=== PATIENT | female | born 1935 | race Caucasian/White ===

== ENCOUNTER 2018-12-10 19:31 | Inpatient (IN) ==
[2018-12-10] MEDS ORDERED: Ipratropium/Albuterol Neb 3 ML IH ONE ×2 (20:06→20:09)
--- NOTE | 2018-12-10 20:22 | Emergency Department Note ---
Disposition Clinical Impression: Community acquired pneumonia Disposition: Admitted As Inpatient Condition: Fair Instructions: Community-acquired Pneumonia (ED) Referrals: NONE,PCP [Primary Care Provider] - Forms: ED Satisfaction Letter Time of Disposition: 21:06 SOB HPI - General Chief Complaint: ED Shortness of Breath/Dyspnea Stated Complaint: sob Time Seen by Provider: 12/10/18 19:55 Source: EMS Limitations: physical limitation Nursing Notes Reviewed: Yes Vital Signs Reviewed: Yes - History of Present Illness For the last 3 days or so Miss Curran is been progressively more more short of breath. She is on home oxygen at 2 L and has a diagnosis of COPD unfortunately she continues to smoke cigarettes. She has had a more productive cough. No chest pain no heart history. She does have a history of a collapsed lung and was transferred to [facility] in [place] a few years ago for that. She is not sure who called the squad but they gave her breathing treatment and she is feeling somewhat better since then. He still accompanies her tells me that she is been more confused the last couple of days not taking medications. She is also had some diarrhea for the last 3 days or so as well. Appetite and down although she has not been nauseated or vomiting. She lives at home alone and tells me that she feels very dizzy and weak on ambulation and that she falls frequently or at least feels as though she is going to. - Related Data Home Medications Medication Instructions Recorded Confirmed Albuterol Sulfate [Ventolin Hfa] 18 gm IH Q4-6H PRN 12/10/18 12/10/18 Aspirin [Adult Aspirin] 81 mg PO DAILY 12/10/18 12/10/18 Budesonide/Formoterol 160/4.5 2 puff IH BIDR 12/10/18 12/10/18 [Symbicort 160/4.5] Buspirone HCl [Buspar] 10 mg PO HS 12/10/18 12/10/18 Meclizine HCl [Verticalm] 25 mg PO DAILY PRN 12/10/18 12/10/18 Paroxetine [Paxil] 30 mg PO DAILY 12/10/18 12/10/18 Ropinirole HCl [Requip] 0.5 mg PO HS 12/10/18 12/10/18 traZODone [TraZODone] 50 mg PO HS 12/10/18 12/10/18 Allergies Allergy/AdvReac Type Severity Reaction Status Date / Time Penicillins Allergy Rash Verified 12/10/18 19:39 Constitutional: Denies: fever, chills Eyes: Denies: vision change ENT ED: Denies: congestion Cardiovascular: Reports: dyspnea on exertion. Denies: chest pain Respiratory: Reports: cough, dyspnea, sputum production Gastrointestinal: Reports: diarrhea (has been accompanied by some incontinence as well). Denies: abdominal pain, nausea, vomiting Musculoskeletal: Denies: myalgia Neurological: Reports: confusion. Denies: headache Psychiatric: Reports: as per HPI (Confusion). Denies: auditory hallucinations, visual hallucinations Endocrine: Reports: fatigue Hematological/Lymphatic: Denies: easy bleeding, easy bruising Past Medical History - Past Medical History Medical history: Reports: cancer, COPD Psychiatric history: Reports: no psych history HORSE RIDER history: Reports: no HORSE RIDER history - Social History Smoking Status: Current some day smoker Smokeless Tobacco Status: No Alcohol use: Reports: none Drug use: Reports: none Physical Exam - General Limitations: physical limitation General appearance: alert - Head Head exam: atraumatic, normocephalic - Eye Eye exam: Present: normal appearance - ENT ENT exam: mucous membranes moist - Respiratory Respiratory exam: Present: respiratory distress (Accessory muscle use although she is able to speak in full sentences. 2 L nasal cannula 95%), accessory muscle use, other (Diffuse inspiratory expiratory rhonchi with fair air exch sourav). Absent: wheezes, stridor - Cardiovascular Cardiovascular exam: Present: regular rate, normal rhythm, normal heart sounds - Abdominal Exam Abdominal exam: Present: soft, Non-Tender - Extremities Exam Extremities exam: Present: normal inspection. Absent: pedal edema, calf ten derness (No calf cord erythema or edema) - Neurological Exam Neurological exam: Present: alert. Absent: oriented X3 (States name name but tells me that the year is "19 ". Niece tells me that this is not normal for her.) - Psychiatric Psychiatric exam: Present: normal affect, normal mood - Skin Skin exam: Present: warm, dry Course Vital Signs Temperature 97.6 F 12/10/18 19:31 Pulse Rate 87 12/10/18 19:31 Respiratory Rate 28 12/10/18 19:31 Blood Pressure 115/58 12/10/18 19:31 O2 Sat by Pulse Oximetry 94 12/10/18 19:31 Temperature 97.6 F 12/10/18 19:31 Pulse Rate 78 12/10/18 20:42 Respiratory Rate 28 12/10/18 20:42 Blood Pressure 114/79 12/10/18 20:42 O2 Sat by Pulse Oximetry 97 12/10/18 20:42 Oxygen Delivery Oxygen Delivery Nasal Cannula Shortness of Breath/Dyspnea - MDM Narrative Medical decision making narrative: Pneumonia. She has not been in the hospital for the last 3 months so we will treat this as community-acquired. Levaquin 750 mg IV 1 was ordered here in the emergency department. She lives alone and is confused. Although her niece does accompany her to the emergency department she is unable to stay with her aunt and no other family members can either. Therefore I do not believe Ms. Curran is safe for discharge. I spoke with the covering hospitalist here Charly and presented the case. She accepted admission. She is in stable condition as she is transferred to the floor. Pneumonia seems to have triggered a COPD exacerbation as well therefore we will continue nebs and Solu-Medrol. Own a tree media. This is drop from 136 last March. This could be contributing to her confusion. We will hydrate her 0.9 normal saline at 125 an hour after the Levaquin is dosed. Hypokalemia. She is not vomiting so we will give this orally. This could be secondary to the diarrhea that she is reported the last 3 days or so. - Medical Records Medical records reviewed: Yes I reviewed the patient's medical records. - Lab Data Lab results reviewed: Yes I reviewed the patient's lab results. Result diagrams: 12/10/18 20:17 12/10/18 20:17 Lab Results 12/10/18 12/10/18 12/10/18 Range/Units 20:17 20:17 20:17 WBC (4.3-11.1) K/mcL RBC (3.82-4.97) M/mcL Hgb (11.5-15.4) g/dL Hct (35.3-44.9) % MCV (83.0-100.0) fL MCH (28.0-33.3) pg MCHC (31.6-35.5) g/dL RDW (11.5-14.5) % Plt Count (140-400) K/mcL MPV (9.4-12.4) fL Immature Gran % (0-4) % Seg Neutrophils % % Lymphocytes % % Monocytes % % Eosinophils % % Basophils % % Neutrophils # (1.6-8.9) K/mcL Lymphocytes # (0.6-4.6) K/mcL Monocytes # (0.0-1.3) K/mcL Eosinophils # (0.0-0.6) K/mcL Basophils # (0.0-0.2) K/mcL PT (9.4-12.1) Seconds INR APTT (26.0-36.0) Seconds D-Dimer 679 H (0-500) ng/mLFEU Sodium 129 L (136-145) mEq/L Potassium 3.1 L (3.5-5.1) mEq/L Chloride 96 L (98-107) mEq/L Carbon Dioxide 23 (23-29) mEq/L BUN 21 (8-23) mg/dL Creatinine 0.75 (0.60-1.20) mg/dL Est GFR ( Amer) > 60 (> 60) Est GFR (Non-Af Amer) > 60 (> 60) BUN/Creatinine Ratio 28 H (6-26) Glucose 174 H (70-105) mg/dL Calculated Osmolality 275 L (280-300) Calcium 9.1 (8.6-10.3) mg/dL Magnesium 1.9 (1.6-2.6) mg/dL Total Bilirubin 0.6 (0.3-1.0) mg/dL AST 23 (13-39) Units/L ALT 10 (7-52) Units/L Alkaline Phosphatase 52 (34-104) Units/L Troponin I < 0.03 (< 0.04) ng/mL B-Natriuretic Peptide 50 (Less than 100) pg/mL Serum Total Protein 6.8 (6.4-8.9) g/dL Albumin 3.9 (3.5-5.7) g/dL Globulin 2.9 (2.4-3.5) g/dL Albumin/Globulin Ratio 1.3 (1.1-2.2) 12/10/18 12/10/18 Range/Units 20:17 20:17 WBC 11.7 H (4.3-11.1) K/mcL RBC 3.80 L (3.82-4.97) M/mcL Hgb 12.2 (11.5-15.4) g/dL Hct 36.4 (35.3-44.9) % MCV 95.8 (83.0-100.0) fL MCH 32.1 (28.0-33.3) pg MCHC 33.5 (31.6-35.5) g/dL RDW 12.9 (11.5-14.5) % Plt Count 199 (140-400) K/mcL MPV 10.2 (9.4-12.4) fL Immature Gran % 0.5 (0-4) % Seg Neutrophils % 88.1 % Lymphocytes % 5.5 % Monocytes % 5.6 % Eosinophils % 0.0 % Basophils % 0.3 % Neutrophils # 10.3 H (1.6-8.9) K/mcL Lymphocytes # 0.6 (0.6-4.6) K/mcL Monocytes # 0.7 (0.0-1.3) K/mcL Eosinophils # 0.0 (0.0-0.6) K/mcL Basophils # 0.0 (0.0-0.2) K/mcL PT 14.5 H (9.4-12.1) Seconds INR 1.3 APTT 32.2 (26.0-36.0) Seconds D-Dimer (0-500) ng/mLFEU Sodium (136-145) mEq/L Potassium (3.5-5.1) mEq/L Chloride (98-107) mEq/L Carbon Dioxide (23-29) mEq/L BUN (8-23) mg/dL Creatinine (0.60-1.20) mg/dL Est GFR ( Amer) (> 60) Est GFR (Non-Af Amer) (> 60) BUN/Creatinine Ratio (6-26) Glucose (70-105) mg/dL Calculated Osmolality (280-300) Calcium (8.6-10.3) mg/dL Magnesium (1.6-2.6) mg/dL Total Bilirubin (0.3-1.0) mg/dL AST (13-39) Units/L ALT (7-52) Units/L Alkaline Phosphatase (34-104) Units/L Troponin I (< 0.04) ng/mL B-Natriuretic Peptide (Less than 100) pg/mL Serum Total Protein (6.4-8.9) g/dL Albumin (3.5-5.7) g/dL Globulin (2.4-3.5) g/dL Albumin/Globulin Ratio (1.1-2.2) - Radiology Data Radiology results reviewed: Yes I reviewed the patient's radiology results. - EKG Data EKG attestation: Yes I reviewed and interpreted this EKG. EKG results narrative: EKG as interpreted by me normal sinus rhythm 80 bpm T-wave flattening in aVL no ST elevations or depressions normal axis no evidence of hypertrophy there are Q waves in V2. No significant change from March 2018.
[2018-12-10 20:28] LABS: Basophils % 0.3 %; Hematocrit 36.4 % (35.3-44.9); Hemoglobin 12.2 g/dL (11.5-15.4); Immature Granulocytes % 0.5 % (0-4); Lymphocytes # 0.6 K/mcL (0.6-4.6); Lymphocytes % 5.5 %; Mean Corpuscular HGB Conc 33.5 g/dL (31.6-35.5); Mean Corpuscular Hemoglobin 32.1 pg (28.0-33.3); Mean Corpuscular Volume 95.8 fL (83.0-100.0); Mean Platelet Volume 10.2 fL (9.4-12.4); Monocytes # 0.7 K/mcL (0.0-1.3); Monocytes % 5.6 %; Neutrophils # 10.3 K/mcL (1.6-8.9); Platelet Count 199 K/mcL (140-400); Red Cell Distribution Width 12.9 % (11.5-14.5); Segmented Neutrophils % 88.1 %
[2018-12-10 20:34] LABS: INR 1.3; Prothrombin Time 14.5 Seconds (9.4-12.1)
[2018-12-10 20:37] LABS: Activated Partial Thrombo Time 32.2 Seconds (26.0-36.0)
[2018-12-10 20:44] LABS: Alanine Aminotransferase 10 Units/L (7-52); Albumin 3.9 g/dL (3.5-5.7); Albumin/Globulin Ratio 1.3 (1.1-2.2); Alkaline Phosphatase 52 Units/L (34-104); Aspartate Amino Transferase 23 Units/L (13-39); BUN/Creatinine Ratio 28 (6-26); Bilirubin,Total 0.6 mg/dL (0.3-1.0); Blood Urea Nitrogen 21 mg/dL (8-23); Calcium 9.1 mg/dL (8.6-10.3); Carbon Dioxide 23 mEq/L (23-29); Chloride 96 mEq/L (98-107); Globulin 2.9 g/dL (2.4-3.5); Glucose 174 mg/dL (70-105); Magnesium 1.9 mg/dL (1.6-2.6); Osmolality,Calculated 275 (280-300); Potassium 3.1 mEq/L (3.5-5.1); Sodium 129 mEq/L (136-145); Total Protein 6.8 g/dL (6.4-8.9); eGFR For Non-African Americans > 60 (> 60)
[2018-12-10 20:50] LABS: Troponin I < 0.03 ng/mL (< 0.04)
[2018-12-10] MEDS ORDERED: Levofloxacin 750 MG/150 ML 750 MG/150 ML BAG IVPB ONE (21:05)
[2018-12-10] MEDS ORDERED: Potassium Chloride Elixir 20 MEQ/15 ML UDC PO ONE (21:08)
[2018-12-10] MEDS ORDERED: Ondansetron 4 MG/2 ML VIAL IVP PRN (21:46)
[2018-12-10] MEDS ORDERED: Ipratropium/Albuterol Neb 3 ML IH PRN (21:46)
[2018-12-10] MEDS ORDERED: Diphenoxylate/Atropine 1 TAB TABLET PO PRN (21:46)
[2018-12-10] MEDS ORDERED: Naloxone 0.4 MG/ML INJ IVP PRN (21:46)
[2018-12-10] MEDS ORDERED: Dextrose Gel 15 GM/37.5 ML TUBE PO PRN (21:47)
[2018-12-10] MEDS ORDERED: Dextrose 4 GM Chewable Tablets PO PRN (21:47)
[2018-12-11] MEDS: 0.9 % Sodium Chloride 1,000 ML IVC SCH ×2 (00:10→08:03)
[2018-12-11] MEDS: MethylPREDNISolone 40 MG/ML VIAL IVP SCH ×5 (00:15→22:39)
[2018-12-11] MEDS: *HR* Enoxaparin 40 MG/0.4 ML SYRINGE SQ SCH (05:31)
[2018-12-11 08:04] LABS: BUN/Creatinine Ratio 28 (6-26); Blood Urea Nitrogen 16 mg/dL (8-23); Calcium 8.7 mg/dL (8.6-10.3); Carbon Dioxide 23 mEq/L (23-29); Chloride 104 mEq/L (98-107); Glucose 165 mg/dL (70-105); Osmolality,Calculated 283 (280-300); Potassium 3.9 mEq/L (3.5-5.1); Sodium 134 mEq/L (136-145); eGFR For Non-African Americans > 60 (> 60)
[2018-12-11] MEDS: Aspirin Enteric Coated 81 MG Tablet PO SCH (10:08)
[2018-12-11] MEDS ORDERED: Dextrose Gel 15 GM/37.5 ML TUBE PO PRN ×2 (11:18)
[2018-12-11] MEDS ORDERED: Dextrose 4 GM Chewable Tablets PO PRN ×2 (11:18)
[2018-12-11] MEDS ORDERED: D5% in Water 1,000 ML IVC PRN (11:18)
[2018-12-11] MEDS ORDERED: *HR* Dextrose 50 % in Water (Syg) 50 ML SYRINGE IVP PRN (11:18)
--- NOTE | 2018-12-11 12:08 | Internal Med History&Physical ---
Date of Encounter: 12/11/18 Time of Encounter: 10:30 Assessment and Plan (1) Pneumonia Current visit: Yes Status: Acute Will treat with IV levaquin and duoneb Qualifiers: Pneumonia type: due to unspecified organism Laterality: unspecified laterality Lung location: unspecified part of lung Qualified Code(s): J18.9 - Pneumonia, unspecified organism (2) Oxygen dependent Current visit: Yes Status: Chronic will continue on her same 2 L Oxygen well sat (3) Hyponatremia Current visit: Yes Status: Acute will treat with IV NS and repeat chem (4) Anxiety Current visit: Yes Status: Chronic will continue her home medications buspar paxil trazodone (5) COPD exacerbation Current visit: Yes Status: Acute will use IV solumedrol for now will use duoneb and restart her symbacort continue NC oxygen and strict avoid smoking Internal Medicine - H&P: HPI Chief complaint: cough and SOB Admitted From: Home History of present illness: - History of Present Illness Ms. Curran is a 83 year old female who was admit from home. She was brought to ED per squad. Pt says her niece called the squad. Pt says she did not want to come to the hospital but that her niece insisted. Pt says this niece is her power of patent prosecution attorney. Pt says she has trouble with her memory and so niece handles things for her. She was noted to be confused in ED. Today she is noted to be easily anxious and forgetful of details, not following conversation, and needing redirection. Pt says she is chronic on home 2 L oxygen, but notes 3 days she is progressively more more short of breath. She has noted an increase in wheeze and sputum. She denies chills. She denies chest pain. Her niece is not here at this time, but ED reported niece indicated pt was more confused than usual and possibly not using her medications at home. In ED she was found to have pulmonary infiltrate and her sodium was low at 129. She does not recall how long she has been on home oxygen at 2 L . She does report she lives alone in 2 bed apt here in [place]. Says that she is and has no pets. Says her only daughter . Pt says she lived in [place] for about 30 years and that her was in [employer] then worked for [employer]. She says she started smoking in her teen years. Says she knows she has a diagnosis of COPD and says she is trying to stop. Says she continues to smoke cigarettes but she is unable to tell me how many or when. Discussed. She denies cardiac hx and her EKG in ED was nonacute. She does have a remote history of a collapsed lung treated [facility] in [place] a few years ago for that. She takes medication for anxiety and restless legs. Says at home she walks with a cane. - Related Data Home Medications Medication Instructions Recorded Confirmed Albuterol Sulfate [Ventolin Hfa] 18 gm IH Q4-6H PRN 12/10/18 12/10/18 Aspirin [Adult Aspirin] 81 mg PO DAILY 12/10/18 12/10/18 Budesonide/Formoterol 160/4.5 2 puff IH BIDR 12/10/18 12/10/18 [Symbicort 160/4.5] Buspirone HCl [Buspar] 10 mg PO HS 12/10/18 12/10/18 Meclizine HCl [Verticalm] 25 mg PO DAILY PRN 12/10/18 12/10/18 Paroxetine [Paxil] 30 mg PO DAILY 12/10/18 12/10/18 Ropinirole HCl [Requip] 0.5 mg PO HS 12/10/18 12/10/18 traZODone [TraZODone] 50 mg PO HS 12/10/18 12/10/18 Allergies Allergy/AdvReac Type Severity Reaction Status Date / Time Penicillins Allergy Rash Verified 12/10/18 19:39 Constitutional: Denies: fever, chills or wt loss Eyes/Ears FOND DU LAC Denies: vision change Cardiovascular: Reports: dyspnea on exertion. Denies: chest pain Respiratory: Reports: cough, dyspnea, sputum production Gastrointestinal: Reports:some loose stools but no vomiting or melana no abd pain. Musculoskeletal: Denies: myalgia Neurological: Reports: confusion. has been chronic but possibly more now Denies: headache Psychiatric: Reports: as per HPI (Confusion). hx anxiety denies SI. Denies: auditory hallucinations, visual hallucinations Endocrine: Reports: fatigue Hematological/Lymphatic: Denies: easy bleeding, easy bruising Past Medical History - Past Medical History Medical history: Reports: cancer, COPD Psychiatric history: Reports: no psych history DOCUMENT REVIEW ATTORNEY history: Reports: no DOCUMENT REVIEW ATTORNEY history - Social History Smoking Status: Current some day smoker Smokeless Tobacco Status: No Alcohol use: Reports: none Drug use: Reports: none Physical Exam - General Limitations: physical limitation General appearance: alert - Head Head exam: atraumatic, normocephalic - Eye Eye exam: Present: normal appearance - ENT ENT exam: mucous membranes moist - Respiratory Respiratory exam: Present: bilat musical wheeze good effort bilat slight barrel chest - Cardiovascular Cardiovascular exam: Present: regular rate, normal rhythm, normal heart sounds - Abdominal Exam Abdominal exam: Present: soft, Non-Tender - Extremities Exam Extremities exam: Present: normal inspection. Absent: pedal edema, calf tenderness (No calf cord erythema or edema) - Neurological Exam Neurological exam: Present: alert. talkative knows she is in hospital does not recall month or year - Psychiatric Psychiatric exam: Present: anxious - Skin Skin exam: Present: warm, dry Past Med Surg Social Fam HX - Past Medical History Medical history: cancer, COPD, GERD Additional medical history: Lt breast cancer. Collapsed lung. Psychiatric history: anxiety, depression - Past Surgical History Surgical History: , hysterectomy Additional surgical history: Lt breast lumpectomy. Radiation. - Social History Smoking Status: Current some day smoker Smokeless Tobacco Status: No Alcohol use: none Drug use: none - Family History Mother History Unknown: Yes Father History Unknown: Yes Internal Medicine - H&P: Meds Albuterol Sulfate [Ventolin Hfa] 18 gm IH Q4-6H PRN 12/10/18 [History] Aspirin [Adult Aspirin] 81 mg PO DAILY 12/10/18 [History] Budesonide/Formoterol 160/4.5 [Symbicort 160/4.5] 2 puff IH BIDR 12/10/18 [History] Buspirone HCl [Buspar] 10 mg PO HS 12/10/18 [History] Meclizine HCl [Verticalm] 25 mg PO DAILY PRN 12/10/18 [History] Paroxetine [Paxil] 30 mg PO DAILY 12/10/18 [History] Ropinirole HCl [Requip] 0.5 mg PO HS 12/10/18 [History] traZODone [TraZODone] 50 mg PO HS 12/10/18 [History] Allergy/AdvReac Type Severity Reaction Status Date / Time Penicillins Allergy Rash Verified 12/10/18 19:39 All Systems PM: A 10-system review of systems was performed and is negative for pertinent findings except as documented above in the HPI. - Constitutional Vitals: Temp Pulse Resp BP Pulse Ox 98.1 F 80 16 131/57 96 12/11/18 08:19 12/11/18 08:19 12/11/18 08:19 12/11/18 08:19 12/11/18 08:19 Internal Med - H&P Results - Labs CBC & Chem 7: 12/10/18 20:17 12/11/18 07:30 Labs: Short CBC 12/10/18 Range/Units 20:17 WBC 11.7 H (4.3-11.1) K/mcL Hgb 12.2 (11.5-15.4) g/dL Hct 36.4 (35.3-44.9) % Plt Count 199 (140-400) K/mcL Neutrophils # 10.3 H (1.6-8.9) K/mcL BMP 12/10/18 12/11/18 20:17 07:30 Sodium 129 L 134 L Potassium 3.1 L 3.9 D Chloride 96 L 104 Carbon Dioxide 23 23 BUN 21 16 Creatinine 0.75 0.57 L Glucose 174 H 165 H Calcium 9.1 8.7 Cardiac Enzymes 12/10/18 Range/Units 20:17 Troponin I < 0.03 (< 0.04) ng/mL Liver Function 12/10/18 Range/Units 20:17 Total Bilirubin 0.6 (0.3-1.0) mg/dL AST 23 (13-39) Units/L ALT 10 (7-52) Units/L Alkaline Phosphatase 52 (34-104) Units/L Albumin 3.9 (3.5-5.7) g/dL - Impressions ITS Impressions Chest X-Ray 12/10/18 20:06 IMPRESSION: Patchy opacities within the right upper lung and right lower lung is most concerning for pneumonia in appropriate clinical setting. Probable small right pleural effusion. Recommend radiographic follow-up to complete resolution after treatment. Findings suggestive of COPD in the background. D/ / Robby Fajardo MD / Robby Fajardo MD Interpreting Provider: Robby Fajardo MD
[2018-12-11] MEDS: Insulin LISPRO 300 UNITS/3 ML VIAL SQ SCH ×4 (14:16→22:39)
[2018-12-11] MEDS: rOPINIRole 0.25 MG TABLET PO SCH (22:39)
[2018-12-11] MEDS: Levofloxacin 750 MG/150 ML 750 MG/150 ML BAG IVPB SCH (22:40)
[2018-12-11] MEDS: Budesonide/Formoterol 160/4.5 1 PUFF INH IH SCH (22:40)
[2018-12-12] MEDS: *HR* Enoxaparin 40 MG/0.4 ML SYRINGE SQ SCH (04:33)
[2018-12-12] MEDS: MethylPREDNISolone 40 MG/ML VIAL IVP SCH ×4 (04:33→20:59)
[2018-12-12 05:17] LABS: Hemoglobin 11.4 g/dL (11.5-15.4); Mean Corpuscular HGB Conc 33.5 g/dL (31.6-35.5); Mean Corpuscular Hemoglobin 31.8 pg (28.0-33.3); Mean Platelet Volume 10.2 fL (9.4-12.4); Platelet Count 184 K/mcL (140-400); Red Blood Count 3.58 M/mcL (3.82-4.97); Red Cell Distribution Width 12.8 % (11.5-14.5)
[2018-12-12 05:31] LABS: BUN/Creatinine Ratio 34 (6-26); Blood Urea Nitrogen 18 mg/dL (8-23); Calcium 8.8 mg/dL (8.6-10.3); Carbon Dioxide 25 mEq/L (23-29); Chloride 102 mEq/L (98-107); Glucose 155 mg/dL (70-105); Osmolality,Calculated 283 (280-300); Potassium 3.7 mEq/L (3.5-5.1); Sodium 134 mEq/L (136-145); eGFR For Non-African Americans > 60 (> 60)
[2018-12-12] MEDS: Insulin LISPRO 300 UNITS/3 ML VIAL SQ SCH ×4 (07:34→20:25)
[2018-12-12] MEDS: Aspirin Enteric Coated 81 MG Tablet PO SCH (10:01)
[2018-12-12] MEDS: Budesonide/Formoterol 160/4.5 1 PUFF INH IH SCH ×2 (10:02→21:10)
--- NOTE | 2018-12-12 13:27 | Internal Med Progress Note ---
Addendum entered and electronically signed by Bienvenido Colon MD 12/12/18 16:46: Later this afternoon, I spoke with her niece who is her power of state attorney at length. She is concerned about not taking her aunt home for self care and family is unable to provide 24 7. After long discussion, we agreed that we will wait and see if utilization management will allow her to be admitted, based on criteria. If so, she will be a consideration for occupational and physical therapy. I have prescribed both of those consults, as below. She will be followed for elevated sugar although this is mildly the case. Of note, niece notes that she is confused at home but now even more so. We talked about change in environment, sundowning, etc. The niece stated she feels better after my assurance that we would try to care for her aunt, as possible. Addendum entered and electronically signed by Bienvenido Colon MD 12/12/18 15:18: I have personally performed a face to face evaluation on this patient. I have reviewed and agree with the care plan. History and Exam by me shows: I interviewed patient at length. She is somewhat confused, as noted. For instance, she asks if she will be able to be here tomorrow and not have to go to the hospital. The niece wants her to be considered for rehabilitation. She does not want her to go to an ECF. Because she is Medicare, social service says that she will need to have a 3 day inpatient stay. We have asked that OT and PT see her and assess her prognosis. She is otherwise without complaint. She feels that her breathing is better but not back to normal. She feels like her inhalers are more appropriate than nebulizer and she wants to quit using the nebulizer. She has less cough but still is making some phlegm production. She denies problems with does note that a couple of days ago she had diarrhea. This has subsided. Discussed care with other providers and/or nursing. Patient has no complaint of chest discomfort, dyspnea, orthopnea, palpitations, nausea or vomiting, constipation or diarrhea, other changes in bowel habits, difficulty with urination, rash or itching, or other new complaints, except as mentioned above. Review of systems is otherwise negative. Examination: (Except as mentioned above): General: In no apparent distress. Alert and oriented 3. Nondiaphoretic. Head: Atraumatic and normocephalic. Respiratory: No use of accessory muscles. Lungs are clear throughout. Normal airflow. Cardiovascular: Regular rate and rhythm without murmur appreciated. Abdomen: Bowel sounds are normal. No hepatosplenomegaly mass or tenderness appreciated. Patient is examined upright at bedside and this also limits exam. Extremities: No cyanosis clubbing or edema. She has chronic discoloration of venous stasis but does not have current edema. Skin: Warm and non-diaphoretic with no new lesions noted. Original Note: Date of Encounter: 12/12/18 Time of Encounter: 13:24 - Assessment and plan (1) COPD exacerbation Current Visit: Yes Status: Acute Assessment and plan: Continue Solu-Medrol and inhaled meds. Improving. (2) Pneumonia Current Visit: Yes Status: Acute Assessment and plan: Continue Levaquin. Will monitor. Qualifiers: Pneumonia type: due to unspecified organism Laterality: unspecified laterality Lung location: unspecified part of lung Qualified Code(s): J18.9 - Pneumonia, unspecified organism - Subjective Interval history: Patient states she feels better today. Denies shortness of breath or chest pain. Denies fever, chills, nausea vomiting or diarrhea. Remains on Levaquin and IV Solu-Medrol. spoke with TIERA lala Lorenda, about discharge concerns, feels like she needs therapy for strengthening. lives at home alone and has been falling lately. not taking care of herself or home as well. family unable to stay with her. - Constitutional Vitals: Temp Pulse Resp BP Pulse Ox 98.5 F 61 16 134/61 95 12/12/18 11:24 12/12/18 11:24 12/12/18 11:24 12/12/18 11:24 12/12/18 11:24 General appearance: Present: cooperative, A&O X 3, pleasant, no acute distress, answers questions appropriately - Head Head exam: Present: atraumatic, normocephalic - Eye Eye exam: Present: PERRL, conjuntiva pink, sclera anicteric Pupils: Present: PERRL - Neck Neck exam general surgery: Present: supple, trachea midline. Absent: lymphadenopathy - Respiratory Respiratory exam: Absent: accessory muscle use, rales, rhonchi, wheezes Additional comments: Respirations even and labored. Diminished lung sounds in right lower lobe. Slight inspiratory wheeze bilateral upper lobes - Cardiovascular Cardiovascular exam: Present: RRR, +S1, +S2. Absent: diastolic murmur, gallop, rubs, systolic murmur - GI/Abdominal GI/Abdominal exam: Present: normal bowel sounds, soft, no peritoneal signs. Absent: distended, tenderness - Extremities Exam Extremities exam: Present: warm, radial pulses palpable and symmetrical. Absent: calf tenderness, cyanotic, pedal edema - Neurological Exam Neurological exam: Present: CN II-XII intact, oriented X3, no focal deficits. Absent: pronater drift, facial droop, speech deficit - Skin Skin exam: Present: dry, intact Internal Medicine: Result - Labs CBC & Chem 7: 12/12/18 05:00 12/12/18 05:00 Labs: Short CBC 12/12/18 Range/Units 05:00 WBC 12.6 H (4.3-11.1) K/mcL Hgb 11.4 L (11.5-15.4) g/dL Hct 34.0 L (35.3-44.9) % Plt Count 184 (140-400) K/mcL BMP 12/12/18 05:00 Sodium 134 L Potassium 3.7 Chloride 102 Carbon Dioxide 25 BUN 18 Creatinine 0.53 L Glucose 155 H Calcium 8.8 - ABG Interpretation ABG results: PT/INR, D-dimer PT 14.5 Seconds (9.4-12.1) H 12/10/18 20:17 D-Dimer 679 ng/mLFEU (0-500) H 12/10/18 20:17 Consult Discharge Plan - Plan Referrals: Balwinder Morales MD [Non-Partnered Physician] - (primary care physician. )
[2018-12-12] MEDS ORDERED: Levofloxacin 750 MG/150 ML 750 MG/150 ML BAG IVPB SCH (18:00)
[2018-12-12] MEDS ORDERED: cloNIDine HCl 0.1 MG TABLET PO PRN (19:07)
[2018-12-12] MEDS: rOPINIRole 0.25 MG TABLET PO SCH (20:57)
[2018-12-12] MEDS: Levofloxacin 750 MG/150 ML 750 MG/150 ML BAG IVPB SCH (21:02)
[2018-12-12] MEDS: Nicotine 21 MG PATCH.TD24 TD SCH (21:07)
[2018-12-13] MEDS: MethylPREDNISolone 40 MG/ML VIAL IVP SCH ×4 (03:53→21:01)
[2018-12-13] MEDS: *HR* Enoxaparin 40 MG/0.4 ML SYRINGE SQ SCH (05:37)
[2018-12-13] MEDS ORDERED: Acetaminophen 325 MG TABLET PO PRN (07:07)
[2018-12-13] MEDS: Insulin LISPRO 300 UNITS/3 ML VIAL SQ SCH ×4 (07:56→20:21)
[2018-12-13] MEDS: Nicotine 21 MG PATCH.TD24 TD SCH (08:26)
[2018-12-13] MEDS: Aspirin Enteric Coated 81 MG Tablet PO SCH (08:26)
[2018-12-13] MEDS: Budesonide/Formoterol 160/4.5 1 PUFF INH IH SCH ×2 (09:02→19:50)
[2018-12-13 12:00] LABS: Bilirubin,Urine Negative (Negative); Blood,Urine Negative (Negative); Clarity,Urine Clear (Clear); Color,Urine Yellow (Yellow); Glucose,Urine (UA) Normal (Normal); Ketones,Urine Negative (Negative); Leukocyte Esterase,Urine Trace (Negative); Nitrite,Urine Negative (Negative); Protein,Urine 30 mg/dL (Neg-Trace); Urobilinogen,Urine Normal (Normal)
[2018-12-13 12:33] LABS: Bacteria,Urine Few per hpf (None-Few); Squamous Epithelial Cell,Urine Few per lpf (None-Few)
--- NOTE | 2018-12-13 13:41 | Internal Med Progress Note ---
Date of Encounter: 12/13/18 Time of Encounter: 13:37 - Assessment and plan (1) COPD exacerbation Current Visit: Yes Status: Chronic Assessment and plan: No acute issues. Patient currently appears relaxed and denies any dyspnea or productive cough. Patient continues on Levaquin for pneumonia. Saturations have been greater than 88% on room air. Physical therapy evaluation pending. We will continue with current plan of care. (2) Anxiety Current Visit: Yes Status: Chronic Assessment and plan: Patient appears relaxed and has been interacting well with staff. We will continue with current medications. - Time Spent With Patient less than 15 minutes - Subjective Interval history: Patient prophylaxis and currently denies any discomforts or shortness of breath. Patient denies any productive cough. Patient does complain of generalized weakness - Constitutional Vitals: Temp Pulse Resp BP Pulse Ox 98.3 F 68 16 150/75 95 12/13/18 07:42 12/13/18 07:42 12/13/18 07:42 12/13/18 10:42 12/13/18 09:43 General appearance: Present: cooperative, A&O X 3, pleasant, no acute distress, answers questions appropriately - Head Head exam: Present: atraumatic, normocephalic - Eye Eye exam: Present: PERRL, conjuntiva pink, sclera anicteric Pupils: Present: PERRL - Neck Neck exam general surgery: Present: supple, trachea midline. Absent: lymphadenopathy - Respiratory Respiratory exam: Present: CTAB. Absent: accessory muscle use, rales, rhonchi, wheezes Additional comments: Lungs are clear throughout upper [place] with diminished bases. Respiratory effort appears relaxed. No productive cough noted. - Cardiovascular Cardiovascular exam: Present: RRR, +S1, +S2. Absent: diastolic murmur, gallop, rubs, systolic murmur - GI/Abdominal GI/Abdominal exam: Present: normal bowel sounds, soft, no peritoneal signs. Absent: distended, tenderness - Extremities Exam Extremities exam: Present: warm, radial pulses palpable and symmetrical. Absent: calf tenderness, cyanotic, pedal edema - Neurological Exam Neurological exam: Present: CN II-XII intact, oriented X3, no focal deficits. Absent: pronater drift, facial droop, speech deficit - Skin Skin exam: Present: dry, intact Internal Medicine: Result - Labs CBC & Chem 7: 12/12/18 05:00 12/12/18 05:00 Labs: Urine 12/13/18 Range/Units 11:24 Urine Color Yellow (Yellow) Urine Clarity Clear (Clear) Urine pH 7.0 (5.0-8.0) pH Units Ur Specific [place] 1.020 (1.010-1.025) Urine Protein 30 H (Neg-Trace) mg/dL Urine Glucose (UA) Normal (Normal) mg/dL - ABG Interpretation ABG results: PT/INR, D-dimer PT 14.5 Seconds (9.4-12.1) H 12/10/18 20:17 D-Dimer 679 ng/mLFEU (0-500) H 12/10/18 20:17 Consult Discharge Plan - Plan Referrals: Balwinder Morales MD [Non-Partnered Physician] - (primary care physician. )
[2018-12-13] MEDS: rOPINIRole 0.25 MG TABLET PO SCH (19:46)
[2018-12-13] MEDS: Levofloxacin 750 MG/150 ML 750 MG/150 ML BAG IVPB SCH (21:06)
--- NOTE | 2018-12-14 00:52 | Electrocardiograph Report ---
[place] [id number] Test Date: 2018-12-10 Pat Name: Karen Curran Department: [facility]1 Room: 113 Gender: F [employer]: : 1935 Requested By: Walt Watts Order Number: [id number] Reading MD: Sayda Hdz Measurements Intervals [place] Rate: 80 P: 73 [place]: 140 QRS: 70 QRSD: 98 T: 59 QT: 371 QTc: 428 Interpretive Statements Sinus rhythm Anteroseptal infarct, old Electronically Signed On 12-14-2018 0:50:07 EST by Sayda Hdz
[2018-12-14] MEDS: *HR* Enoxaparin 40 MG/0.4 ML SYRINGE SQ SCH (04:03)
[2018-12-14] MEDS: MethylPREDNISolone 40 MG/ML VIAL IVP SCH ×3 (04:03→16:01)
[2018-12-14] MEDS: Insulin LISPRO 300 UNITS/3 ML VIAL SQ SCH ×2 (08:32→11:50)
[2018-12-14] MEDS: Aspirin Enteric Coated 81 MG Tablet PO SCH (08:32)
[2018-12-14] MEDS: Nicotine 21 MG PATCH.TD24 TD SCH (08:33)
[2018-12-14] MEDS: Budesonide/Formoterol 160/4.5 1 PUFF INH IH SCH (10:48)
--- NOTE | 2018-12-14 15:04 | Physician Discharge Referral ---
ExtendedCare Referral Info Provider in Charge after Transfer: PCP Institutional Level of Care: Skilled - Diagnosis (1) COPD exacerbation Priority: Primary Status: Chronic (2) Pneumonia Priority: Primary Status: Acute (3) Weakness Priority: Primary Status: Acute Prognosis: Fair Aware of Diagnosis: Patient, Family Aware of Prognosis: Patient, Family - Transfer Medications Home Medications: Albuterol Sulfate [Ventolin Hfa] 18 gm IH Q4-6H PRN 12/10/18 [History] Aspirin [Adult Aspirin] 81 mg PO DAILY 12/10/18 [History] Budesonide/Formoterol 160/4.5 [Symbicort 160/4.5] 2 puff IH BIDR 12/10/18 [History] Buspirone HCl [Buspar] 10 mg PO HS 12/10/18 [History] Meclizine HCl [Verticalm] 25 mg PO DAILY PRN 12/10/18 [History] Paroxetine [Paxil] 30 mg PO DAILY 12/10/18 [History] Ropinirole HCl [Requip] 0.5 mg PO HS 12/10/18 [History] traZODone [TraZODone] 50 mg PO HS 12/10/18 [History] Tiotropium [Spiriva] 18 mcg IH 0700 12/11/18 [History] Allergies/Adverse Reactions: Allergy/AdvReac Type Severity Reaction Status Date / Time Penicillins Allergy Rash Verified 12/10/18 19:39 - Respiratory Orders Smoking Cessation: Smoking cessation has been advised. For more information, call the [employer] Tobacco Quit Line at 5-912-XHCU-NOW. - Advance Directives Power of Forest Technology Professor for Health Care: Yes Code Status: Full Code - Mobility Orders Ambulate - Rehabiliation Orders Rehab Potential: Good Rehab Orders: Evaluation for Physical Therapy, Evaluation for Occupational Therapy - Diet Orders Regular CERTIFICATION: I certify that the transfer of the above named patient to an Extended Care Facility is necessary for the continuing treatment of the diagnosis listed. The above information is true and accurate reflection of patient's current condition. Confidential - Redisclosure prohibited without a patient's written consent.
--- NOTE | 2018-12-14 16:05 | Discharge Summary ---
Orders not resulted at time of discharge: Pending orders 12/10/18 20:07 Culture,Sputum with Gram Stain [RM] Stat 12/10/18 20:17 Culture,Blood [BC] Stat Date of Encounter: 12/14/18 Time of Encounter: 16:00 - Discharge Diagnosis (1) COPD exacerbation Priority: Primary Status: Chronic Comments: Continue current medication. Improving. Follow up with space systems operations manager as scheduled. (2) Pneumonia Priority: Primary Status: Acute Comments: Continue PO Levaquin. Improving. Qualifiers: Pneumonia type: due to unspecified organism Laterality: unspecified laterality Lung location: unspecified part of lung Qualified Code(s): J18.9 - Pneumonia, unspecified organism (3) Weakness Priority: Primary Status: Acute Comments: Discharging to [facility] for PT and OT. Hospital course: [facility] 83 [facility]. This has improved. Maintaining oxygen saturation on room air. Was treated with Solu-Medrol and IV Levaquin. Will continue prednisone taper for the next 6 days and Levaquin PO. Going to [facility] for PT and OT. To gain strength. Lives at home alone and family unable to provide recommended 24 hour supervision. Patient is confused at times, more so at night. Denies fever, chills, nausea vomiting or diarrhea. Discharge discussed with: patient, family, nurse, social work - Time Spent with Patient Total time spent providing and/or coordinating discharge services: Less than 30 minutes - Discharge Medications Prescriptions: New Ipratropium/Albuterol Neb [Duoneb] 3 ml IH [id number] PRN inhsol PRN Reason: Shortness Of Breath/WHEEZING Nicotine Patch [Nicoderm] 21 mg TD DAILY patch.td24 Enoxaparin [Lovenox] 40 mg SQ 0700 syringe cloNIDine HCl [CloNIDine HCl] 0.1 mg PO Q6H PRN tablet PRN Reason: Blood Pressure - High Acetaminophen [Tylenol] 650 mg PO Q4HR PRN tablet PRN Reason: Pain Dextrose [Glucose Tablets] 16 gm PO ONCE PRN tab.chew PRN Reason: Hypoglycemia Continue Budesonide/Formoterol 160/4.5 [Symbicort 160/4.5] 2 puff IH BIDR traZODone [TraZODone] 50 mg PO HS Meclizine HCl [Verticalm] 25 mg PO DAILY PRN PRN Reason: Dizziness Ropinirole HCl [Requip] 0.5 mg PO HS Paroxetine [Paxil] 30 mg PO DAILY Buspirone HCl [Buspar] 10 mg PO HS Aspirin [Adult Aspirin] 81 mg PO DAILY Albuterol Sulfate [Ventolin Hfa] 18 gm IH Q4-6H PRN PRN Reason: Shortness Of Breath/Wheezing Tiotropium [Spiriva] 18 mcg IH 0700 Home Medications: Albuterol Sulfate [Ventolin Hfa] 18 gm IH Q4-6H PRN 12/10/18 [History] Aspirin [Adult Aspirin] 81 mg PO DAILY 12/10/18 [History] Budesonide/Formoterol 160/4.5 [Symbicort 160/4.5] 2 puff IH BIDR 12/10/18 [History] Buspirone HCl [Buspar] 10 mg PO HS 12/10/18 [History] Meclizine HCl [Verticalm] 25 mg PO DAILY PRN 12/10/18 [History] Paroxetine [Paxil] 30 mg PO DAILY 12/10/18 [History] Ropinirole HCl [Requip] 0.5 mg PO HS 12/10/18 [History] traZODone [TraZODone] 50 mg PO HS 12/10/18 [History] Tiotropium [Spiriva] 18 mcg IH 0700 12/11/18 [History] Acetaminophen [Tylenol] 650 mg PO Q4HR PRN tablet 12/14/18 [Rx] Dextrose [Glucose Tablets] 16 gm PO ONCE PRN tab.chew 12/14/18 [Rx] Enoxaparin [Lovenox] 40 mg SQ 0700 syringe 12/14/18 [Rx] Ipratropium/Albuterol Neb [Duoneb] 3 ml IH [id number] PRN inhsol 12/14/18 [Rx] Levofloxacin [Levaquin] 750 mg PO DAILY 7 Days #7 tablet 12/14/18 [Rx] Nicotine Patch [Nicoderm] 21 mg TD DAILY patch.td24 12/14/18 [Rx] cloNIDine HCl [CloNIDine HCl] 0.1 mg PO Q6H PRN tablet 12/14/18 [Rx] predniSONE [PredniSONE] 10 mg PO BIDWM 6 Days #12 tablet 12/14/18 [Rx] Allergies/Adverse Reactions: Allergy/AdvReac Type Severity Reaction Status Date / Time Penicillins Allergy Rash Verified 12/10/18 19:39 Date of admission: 12/13/18 10:16 Primary care physician: PCP NONE Consults: 12/10/18 21:46 Consult to Partition Making Machine Operator [CONS] Routine Reason for SW Consult: Lives alone. Frequent falls. 12/12/18 14:26 Consult to Physical Therapy [CONS] Routine Comment: Evaluate, develop and implement POC Reason for Consult: Assess strengthening and stability; treat and manage as indicated Does patient have active BEDREST order?: No Is patient medically & hemodynamically stable?: Yes 12/12/18 14:27 Consult to Occupational Therapy [CONS] Routine Comment: Evaluate, develop and implement POC Reason for Consult: Assess benefit of OT and ADL independence; treat and manage as indicated Does patient have active BEDREST order?: No Is patient medically & hemodynamically stable?: Yes Discharging clinician: Helen Palomares Anticipated date of discharge: 12/14/18 - Constitutional Vitals: Temp Pulse Resp BP Pulse Ox 97.5 F L 69 17 147/67 97 12/14/18 11:55 12/14/18 11:55 12/14/18 11:55 12/14/18 11:55 12/14/18 11:55 General appearance: Present: cooperative, A&O X 3, pleasant, no acute distress, answers questions appropriately - Head Head exam: Present: atraumatic, normocephalic - Eye Eye exam: Present: PERRL, conjuntiva pink, sclera anicteric Pupils: Present: PERRL - Neck Neck exam general surgery: Present: supple, trachea midline. Absent: lymphadenopathy - Respiratory Respiratory exam: Present: CTAB. Absent: accessory muscle use, rales, rhonchi, wheezes Additional comments: Diminished bilateral bases - Cardiovascular Cardiovascular exam: Present: RRR, +S1, +S2. Absent: diastolic murmur, gallop, rubs, systolic murmur - GI/Abdominal GI/Abdominal exam: Present: normal bowel sounds, soft, no peritoneal signs. Absent: distended, tenderness - Extremities Exam Extremities exam: Present: warm, radial pulses palpable and symmetrical. Absent: calf tenderness, cyanotic, pedal edema - Neurological Exam Neurological exam: Present: CN II-XII intact, oriented X3, no focal deficits. Absent: pronater drift, facial droop, speech deficit - Skin Skin exam: Present: dry, intact - Patient Status Disposition: Transfer SNF Condition: Fair Functional capacity at discharge: uses cane/walker Overall status at discharge: patient is progressing back to baseline - Discharge Instructions Follow Up With: Balwinder Morales MD [Non-Partnered Physician] - (primary care physician. ) - Diet and Activity Activity: as per physical therapy Diet: advance to your usual diet
[2018-12-14 16:17] VITALS: BP 179/71
== END 2018-12-14 16:49 | DRG 194 ==
LOC: INPGRE 19:31 → EMEROOGRE 19:31 → INPGRE 22:02